=== PATIENT | female | born 1995 | race Two or more races ===

== ENCOUNTER 2021-08-10 10:13 | Emergency (ER) | payer MEDICAID ==
[~2021-08-10] VITALS: Ht 172.7 cm; Wt 77.1 kg
--- NOTE | 2021-08-10 10:16 | NUR ---
BIBMOM C/O WORSENING SOB, COUGH, CONGESTION x 5DAYS. O2 SAT 98%RA. ALSO HAD FEVER THIS AM,TOOK TYLENOL. COVID NEGATIVE YESTERDAY AT URGENT CARE. TO ER BED 7, HOOKED TO MONITOR, TACHY. CHANGED TO HOSP GOWN, WARM BLANKET PROVIDED. PATIENT AAO x 4. BREATHING EVEN AND UNLABORED. AWAITING MD HYATT
--- NOTE | 2021-08-10 11:02 | NUR ---
RADIOLOGY FOR CHEST X RAY AT BEDSIDE
[2021-08-10] MEDS ORDERED: AZIT250T13 PO ×2 (11:13→11:16)
[2021-08-10 11:29] VITALS: BP 111/67
--- NOTE | 2021-08-10 11:29 | NUR ---
Patient discharged to home with mother in stable condition. Written and verbal after care instructions given. Patient verbalizes understanding of instruction.
== END 2021-08-10 11:30 | disposition home or self-care (01) ==
LOC: ER 10:27
DX: J18.9 Pneumonia, unspecified organism (principal); Z79.899 Other long term (current) drug therapy
CPT/HCPCS: 71045-TC